=== PATIENT | male | born 1980 | race African-American/Black ===

== ENCOUNTER 2021-10-16 14:51 | Emergency (ER) | payer OTHER ==
[~2021-10-16] VITALS: Ht 177.8 cm; Wt 204.1 kg
[2021-10-16] MEDS ORDERED: KETOROLAC TROMETHAMINE 30 MG/ML VIAL IM STA (15:18)
[2021-10-16] MEDS ORDERED: CYCLOBENZAPRINE HCL 10 MG TAB PO ONE (17:45)
== END 2021-10-16 16:45 | disposition home or self-care (01) ==
LOC: ER 15:10
DX: S76.802A Unspecified injury of other specified muscles, fascia and tendons at thigh level, left thigh, initial encounter (principal); I10 Essential (primary) hypertension; X58.XXXA Exposure to other specified factors, initial encounter; Y93.89 Activity, other specified; Y99.8 Other external cause status
CPT/HCPCS: 73552; 73560; 73590; 99284; J1885